=== PATIENT | female | born 1970 | race Caucasian/White ===

== ENCOUNTER 2018-06-17 10:56 | Day surgery (SDC) | payer OTHER, SELFPAY ==
[2018-06-17] VITALS (17 sets, daily range): BP systolic 74–116; BP diastolic 40–61; PULSE 58–103; RESP 15–18; TEMP 36.2–37.2; O2SAT 91–99; BMI 29.2; BMI 29.3
--- NOTE | 2018-06-17 00:21 | HP.PCM_ITS ---
- Problem List (1) Dysmenorrhea Status: Acute History and Physical Date of Admission: 06/17/18 Vital Signs 06/01/18 Height 5 ft 6.75 in 06/01/18 Weight: 189 lb 06/01/18 Body Mass Index (BMI) 29.8 06/01/18 Blood Pressure 118/78 Intake Visit Reasons: DISCUSS NEEDING HYSTERECTOMY Care Mgr Required: No Is patient in pain?: No Allergies No Known Allergies Allergy (Unverified 06/01/18 11:50) Medications cyclobenzaprine 5 mg tablet 5 mg PO TID PRN 06/01/18 [History Confirmed 06/01/18] naproxen 500 mg tablet 500 mg PO BID 06/01/18 [History Confirmed 06/01/18] zolpidem 5 mg tablet 5 mg PO QHS PRN 06/01/18 [History Confirmed 06/01/18] Is last menstrual period known: No Post menopausal: No Patient : No : No Nurse's Note: Pt had endometrial ablation done 3 years ago. [facility] Surgical History History of endometrial ablation (Acute) Family History Brother Heart disease Grandfather Heart disease Father Heart disease Social History number of children: 3 current occupational status: employed current occupation: [employer] Smoking Status: Never smoker alcohol intake: current alcohol intake frequency: holidays/special occasions only substance use type: does not use what type of physical activity do you participate in: weight training seatbelt use: always do you feel safe at home: Yes HPI DISCUSS NEEDING HYSTERECTOMY: Details: SHANE CHURCH is a 48 year old who presents for chronic lower pelvic pain. she had ultrasounds done and the uterus is normal size, she has had an endometrial ablation i the past and she only has 1-2 days of spotting a month but started with cyclic pain and now it is central, lower, cramping and intermittent pain that interferes with quality of life. she has been seen at and has had ultrasounds and Pregancy History 3 Elective abortions Hx Para 3 Spontaneous abortions Hx # Term Pregnancies Ectopic pregnancies Hx # Pregnancies Multiple births # of living children 3 Past Pregnancies Del. Date Name GA/Weeks Outcome Route Bth Weight Infant Gen Labor Lgth Anesthesia Del Locatn Provider FOB Unknown Marta 1992 Unknown Audrey 1994 Unknown Mary 1998 ROS Const Constitutional: Denies fatigue, fever(s), headache(s), increased appetite, poor appetite, weight gain or weight loss ENT ENT: Denies dry mouth GI GI: Reports as per HPI and abdominal pain; denies constipation, nausea or vomiting : Reports as per HPI and pelvic pain; denies difficulty urinating, painful urination, blood in urine, nipple discharge, urinary frequency, urinary incontinence, urinary hesitancy, urinary urgency, vaginal discharge, vaginal dryness, vaginal odor, vaginal itching or other Skin Skin/Breast: Denies hair loss, change in hair, dry skin, breast lump, breast pain, breast skin changes or nipple discharge Exam Const General: cooperative, healthy appearing, comfortable, no acute distress, well developed Nutritional Appearance: average body habitus Orientation: alert HENMT Head: normal to inspection, normocephalic Ears: hearing grossly normal bilaterally, external ears normal Nose: external nose normal, nares normal Face and sinus: normal facial exam Neck Neck: normal visual inspection, no lymphadenopathy, trachea midline Thyroid: thyroid normal Resp Effort & Inspection: normal respiratory effort Musc Other: gross motor intact no deficits, full bilateral strength Skin General: no rashes or lesions noted Neuro Motor: muscle tone normal throughout Assessment & Plan Problems 1. Dysmenorrhea N94.6 plan TVH BS Plan discussed options for management- will obtain records fro previous office for workup information. plan tvh bs. discussed surgical risks including risks of anesthesia, infection, bleeding, injury to bowel, bladder or blood vessels, and patient wishes to proceed with surgery. Coding Level of Care Code Off vis,new,level 4 Diagnoses Dysmenorrhea N94.6 UPDATE- I have seen the patient and performed any clinically relevant updates to the history and physical exam. Rhianna Lundy MD
[2018-06-17 11:32] LABS: Absolute Neutrophil Count 3.5 X10^3/uL (2.0-7.7); Basophil# 0.02 X10^3/uL; Basophil% 0.4 % (0-1); Eosinophil# 0.17 X10^3/uL; Eosinophils% 3.2 % (0-5); Hematocrit 40.4 % (37-47); Hemoglobin 13.5 g/dl (12.0-15.0); Lymphocyte % 22.4 % (19-41); Mean Corp Hgb Conc 33.4 g/gl (32-36); Mean Corpuscular Hgb 30.4 pg (27.0-32.0); Mean Platelet Vol. 9.8 fl (6.2-12.0); Monocyte# 0.47 X10^3/uL; Monocyte% 8.8 % (0-10); Neutrophil % 65.2 % (47-70); POSITIVE COUNT NO; POSITIVE DIFFERENTIAL NO; POSITIVE MORPHOLOGY NO; Platelet Count 195 K/mm3 (150-450); RBC Distribution Width CV 12.6 % (11.6-14.6); RBC Distribution Width SD 41.6 fl (35.1-43.9); Red Blood Count 4.44 M/mm3 (4.2-5.4); White Blood Count 5.4 K/mm3 (4.4-11.0)
[2018-06-17] MEDS: Scopolamine 1mg/72hr Patch 1 PATCH TRANSDERM. (11:43)
[2018-06-17] MEDS: Acetaminophen 500 MG Tablet 1000 MG PO ×2 (11:43→17:48)
[2018-06-17] MEDS: Gabapentin 600 MG Tablet PO (11:43)
[2018-06-17] MEDS: Celecoxib 200 MG Capsule 400 MG PO (11:43)
[2018-06-17] MEDS: Phenazopyridine 95 MG Tablet 190 MG PO (11:43)
[2018-06-17] MEDS: Enoxaparin 40 MG/0.4 ML Syringe SC (11:44)
[2018-06-17] MEDS: Lactated Ringers 1,000 ML 40 ML IV (11:45)
[2018-06-17] MEDS: Magnesium Sulfate 4gm/100mL 4 GM/100 ML IV.SOLN. IV (11:46)
[2018-06-17 11:48] LABS: Internal QC Validated? YES +Cl - CLEAR BKGD; Pregnancy, Urine Negative Negative
[2018-06-17 12:01] LABS: Bedside Glucose 98 mg/dL (70-110)
--- NOTE | 2018-06-17 13:00 | HYST_PTH ---
PATIENT: SHAEN CHURCH LOC: [facility] [place] U#:[id number] AGE/SX: 48/F ROOM: RE06/17/[address]: Dr. Rhianna Lundy MD : 1970 BED: DIS: 06/18/2018 SPEC #: [id number] RECD: 06/17/18 15:16 STATUS: DANGELO SKYJuan Carlos #: [id number] SYLVESTER: 06/17/18 13:[address]: Rhianna Lundy DEPT: SURGICAL PATHOLOGY RECD BY: Love Valadez ENTERED: 06/18/18 09:39 SP TYPE: HYSTERECT OTHR DR: Dr. Rudy Chang MD Tissues: Uterus, NOS Procedures: Surgery Specimen Level V HEADER OPERATION: ERAS, Total vaginal hysterectomy PRE-OP DIAGNOSIS: Dysmenorrhea TISSUE SUBMITTED: Uterus MICROSCOPIC DIAGNOSIS Uterus, vaginal hysterectomy: Cervix - focal mild chronic inflammation. Endometrium - inactive endometrium. See comment. Myometrium - adenomyosis. SJ:augustine 06/21/18 COMMENT The endometrium is predominantly denuded and shows very thin strip of endometrium with inactive endometrium. The endometrial tissue in the area of adenomyosis shows proliferative endometrium. MICROSCOPIC DESCRIPTION Slides are reviewed. GROSS DESCRIPTION Received in fixative is one container labeled with the patient's name and designated uterus. The specimen consists of a uterus with attached cervix measuring 9.5 x 5 x 4.2 cm and weighing 105 gm. The ectocervix is oval in contour and no mass lesions are seen. The endocervical canal measures 3.7 cm in length and is grossly unremarkable. The endometrial cavity is scarred and elongated measuring 3 x 0.8 cm in greatest dimension. The endometrium measures <0.1 cm in thickness. The myometrium measures 2 cm in greatest thickness and is free of mass lesions. Quarry Equipment Operator sections are submitted as follows: 1 - anterior cervix, 2 - posterior cervix, 3 & 4 - anterior uterine wall, 5 & 6 - posterior uterine wall. / AM:augustine 06/18/18 TC:5 CPT: 34943
[2018-06-17] MEDS: Vasopressin 20 UNITS/ML Vial (13:16)
--- NOTE | 2018-06-17 14:12 | PCM.OPRPT ---
Problem List (1) Dysmenorrhea Status: Acute Report of Operation Date of Procedure: 06/17/18 Pre-Operative Diagnosis: dysmenorrhea pelvic pain Post-Operative Diagnosis: same Surgery/Procedure Performed:: tvh Description of Surgical Findings:: normal uterus long cervix narrow introitus fiction and nonfiction writer prose: Nicolle Vargas Type of Anesthesia:: General Special Medications: none Specimen's removed: uterus Drains: camacho Estimated Blood Loss (mL): 100 Fluids Replaced: crystalloid Description of Procedure: Patient was taken to the operating room and was placed under general anesthesia was prepped and draped in normal sterile fashion in the dorsal lithotomy position. Preoperative antibiotics and SCDs and Camacho catheter was placed inside the bladder. Weighted speculum was placed in the vagina and the anterior and posterior lip of the cervix was grasped with 2 Jesika clamps and circumferentially injected with dilute vasopressin. A circumferential incision was made with a scalpel and the posterior cul-de-sac was entered into sharply and a longneck speculum was placed. The anterior cul-de-sac was also dissected down and entered into sharply and the uterosacral ligaments were clamped cut and suture ligated bilaterally followed by the cardinal ligaments which were Clamped cut and suture ligated bilaterally with 0 Monocryl. The uterus serially descended and progressive bites were taken bilaterally up to the level of the utero-ovarian ligament bilaterally which was clamped transected and double ligated with 0 Monocryl suture and 0 Vicryl free tie. Bilateral fallopian tubes and ovaries were well visualized and noted be within normal limits. 2 additional right pelvic sidewall stitches were placed to obtain excellent hemostasis. Excellent hemostasis was noted. The vagina was closed with [id number] 0 Vicryl pop offs including the posterior and anterior peritoneum in the reapproximation. Excellent hemostasis was noted. All instruments removed from the vagina clear urine was noted at the end of the procedure and patient was awoken and taken recovery in stable condition. Grafts/Implants Used: none - Complications none - Admit VTE Documentation VTE Present on Admission: No VTE Mechan Device Prophylaxis: SCD's VTE Pharm Prophylaxis ordered?: Yes
--- NOTE | 2018-06-17 14:15 | OP.PCM_ITS ---
Problem List (1) Dysmenorrhea Status: Acute Report of Operation Date of Procedure: 06/17/18 Pre-Operative Diagnosis: dysmenorrhea pelvic pain Post-Operative Diagnosis: same Surgery/Procedure Performed:: tvh Description of Surgical Findings:: normal uterus long cervix narrow introitus assistant professor of geography: Nicolle Vargas Type of Anesthesia:: General Special Medications: none Specimen's removed: uterus Drains: camacho Estimated Blood Loss (mL): 100 Fluids Replaced: crystalloid Description of Procedure: Patient was taken to the operating room and was placed under general anesthesia was prepped and draped in normal sterile fashion in the dorsal lithotomy position. Preoperative antibiotics and SCDs and Camacho catheter was placed inside the bladder. Weighted speculum was placed in the vagina and the anterior and posterior lip of the cervix was grasped with 2 Jesika clamps and circumferentially injected with dilute vasopressin. A circumferential incision was made with a scalpel and the posterior cul-de-sac was entered into sharply and a longneck speculum was placed. The anterior cul-de-sac was also dissected down and entered into sharply and the uterosacral ligaments were clamped cut and suture ligated bilaterally followed by the cardinal ligaments which were Clamped cut and suture ligated bilaterally with 0 Monocryl. The uterus serially descended and progressive bites were taken bilaterally up to the level of the utero-ovarian ligament bilaterally which was clamped transected and double ligated with 0 Monocryl suture and 0 Vicryl free tie. Bilateral fallopian tubes and ovaries were well visualized and noted be within normal limits. 2 additional right pelvic sidewall stitches were placed to obtain excellent hemostasis. Excellent hemostasis was noted. The vagina was closed with [id number] 0 Vicryl pop offs including the posterior and anterior peritoneum in the reapproximation. Excellent hemostasis was noted. All instruments removed from the vagina clear urine was noted at the end of the procedure and patient was awoken and taken recovery in stable condition. Grafts/Implants Used: none - Complications none - Admit VTE Documentation VTE Present on Admission: No VTE Mechan Device Prophylaxis: SCD's VTE Pharm Prophylaxis ordered?: Yes
--- NOTE | 2018-06-17 14:17 | DCINST_ITS ---
Discharge Diet: No Restrictions Discharge Activity: Return to Normal Activity, May Not Drive, May Shower May resume sexual activity in: 6-8 weeks Call your doctor if your incision/area has: Continuous Slow Oozing, Sudden Increased Bleeding, Increased Pain/ Swelling, Increased Redness, Foul Smelling Discharge Call your doctor if you observe: Fever of 101 or Higher, Inability to urinate, Inability to have a bowel movement, Using more than one pad per hour Allergies/Adverse Reactions: Allergies No Known Allergies Allergy (Verified 06/17/18 11:31) Medications to take at Discharge Cyclobenzaprine [Flexeril] 10 mg PO QHS 06/10/18 Naproxen [Naprosyn] 500 mg PO DAILY 06/10/18 Zolpidem Tartrate [Ambien] 10 mg PO QHS 06/10/18 Ibuprofen [Motrin] 600 mg PO Q6H PRN PRN #30 tablet 06/17/18 Oxycodone HCl/Acetaminophen [Percocet 5-325] 1 - 2 tablet PO Q4H PRN PRN 7 Days #15 tablet 06/17/18 The following prescriptions were given: Oxycodone HCl/Acetaminophen [Percocet 5-325] 1 - 2 tablet PO Q4H PRN PRN 7 Days #15 tablet PRN Reason: Pain Ibuprofen [Motrin] 600 mg PO Q6H PRN PRN #30 tablet PRN Reason: Pain Primary Care Physician: Rudy Chang MD [Primary Care Provider] - Test Results: Test results from this visit will be discussed in further detail at your follow- up appointment, if applicable. Please Follow Up With: Rhianna Lundy MD - [phone]
[2018-06-17] MEDS: Lactated Ringers 500 ML 999 ML IV (16:05)
[2018-06-17] MEDS: Ketorolac 30 MG/ML Syringe IV (17:48)
[2018-06-17] MEDS: Docusate Sodium 100 MG Capsule PO (21:08)
[2018-06-18] MEDS: Ketorolac 30 MG/ML Syringe IV ×2 (00:12→06:03)
[2018-06-18] MEDS: 0.9% NaCl Peripheral Flush Adult/Peds IV ×2 (00:12→06:03)
[2018-06-18] MEDS: Lactated Ringers 1,000 ML 70 ML IV (00:16)
[2018-06-18] MEDS: Acetaminophen 500 MG Tablet 1000 MG PO ×2 (00:18→06:03)
[2018-06-18 04:37] VITALS: BP 105/61; PULSE 97; RESP 16; TEMP 36.6; O2SAT 95
[2018-06-18 06:45] LABS: Hematocrit 34.9 % (37-47); Hemoglobin 12.1 g/dl (12.0-15.0); Mean Corp Hgb Conc 34.7 g/gl (32-36); Mean Corpuscular Hgb 31.8 pg (27.0-32.0); Mean Corpuscular Volume 91.6 fL (81-99); Mean Platelet Vol. 10.1 fl (6.2-12.0); Platelet Count 219 K/mm3 (150-450); RBC Distribution Width CV 12.2 % (11.6-14.6); RBC Distribution Width SD 39.4 fl (35.1-43.9); Red Blood Count 3.81 M/mm3 (4.2-5.4); White Blood Count 12.8 K/mm3 (4.4-11.0)
[2018-06-18 06:46] LABS: Scan Indicated on CBC? Y/N NO
[2018-06-18 07:32] VITALS: O2SAT 94
[2018-06-18] MEDS: Docusate Sodium 100 MG Capsule PO (08:01)
[2018-06-18] MEDS: Enoxaparin 40 MG/0.4 ML Syringe SC (08:01)
[2018-06-18 08:04] VITALS: BP 95/55; PULSE 64; RESP 16; TEMP 36.6; O2SAT 99
--- NOTE | 2018-06-18 08:20 | PN.OBGYN_ITS ---
Subjective: Doing well. Pain controlled. camacho out, waiting to void - Physical Exam General: Alert, Oriented x3 Abdomen: Soft, Non Tender, Non-Distended Vital Signs Temp Pulse Resp BP Pulse Ox 97.9 F 64 16 95/55 L 99 06/18/18 08:04 06/18/18 08:04 06/18/18 08:04 06/18/18 08:04 06/18/18 08:04 Oxygen Flow Rate (L/min) 2 Oxygen Delivery Method Room Air Weight: 187 lb 2.759 oz Body Mass Index (BMI) 29.3 Intake and Output for Last 24 Hours 06/16/18 06/17/18 06/18/18 23:59 23:59 23:59 Intake Total 1956 / 1956 1470 / 1470 Output Total 710 / 710 2300 / 2300 Balance 1246 / 1246 -830 / -830 Laboratory Tests Past 24 Hrs 06/17/18 06/17/18 06/17/18 11:26 11:26 12:45 WBC 5.4 RBC 4.44 Hgb 13.5 Hct 40.4 MCV 91.0 MCH 30.4 MCHC 33.4 RDW 12.6 RDW Differential 41.6 Plt Count 195 MPV 9.8 Immature Gran % (Auto) 0.000 Neut % (Auto) 65.2 Lymph % (Auto) 22.4 [place] % (Auto) 8.8 Eos % (Auto) 3.2 Baso % (Auto) 0.4 Absolute Neuts (auto) 3.5 Absolute Lymphs (auto) 1.20 Total Counted Not Reportable Urine Test Negative Blood Type A POSITIVE Antibody Screen NEGATIVE 06/18/18 06:20 WBC 12.8 H RBC 3.81 L Hgb 12.1 Hct 34.9 L MCV 91.6 MCH 31.8 MCHC 34.7 RDW 12.2 RDW Differential 39.4 Plt Count 219 MPV 10.1 Immature Gran % (Auto) Neut % (Auto) Lymph % (Auto) [place] % (Auto) Eos % (Auto) Baso % (Auto) Absolute Neuts (auto) Absolute Lymphs (auto) Total Counted Urine Test Blood Type Antibody Screen POC Glucose 06/17/18 11:33 POC Glucose 98 Medical Necessity - Tobacco Use Smoking Status: Never smoker Tobacco Use: Non-smoker Assessment/Plan All Active Problems Dysmenorrhea (Acute) TVH POD#1: Routine care. Plans home this AM
[2018-06-18 11:22] VITALS: BP 122/73; PULSE 83; RESP 18; TEMP 36.7; O2SAT 99
== END 2018-06-18 11:27 | disposition home or self-care (01) ==
LOC: SDC 11:01 → AC 11:01 → MS3 13:32
PROVIDERS: Anesthesiology; Family Provider Family Medicine; PCP Family Medicine; Referring Provider Obstetrics & Gynecology; Visit Provider Obstetrics & Gynecology
PROC: (CPT 58260; principal; 2018-06-17 12:40)
DX: N80.0 Endometriosis of uterus (principal); N94.6 Dysmenorrhea, unspecified; F41.9 Anxiety disorder, unspecified; M19.90 Unspecified osteoarthritis, unspecified site; Z79.899 Other long term (current) drug therapy
CPT/HCPCS: 58260; 36415; 81025; 82962; 85025; 85027; 86850; 86900; 88307; J7120; A4216; J2405

== ENCOUNTER → 2018-12-02 | Outpatient (CLI) | payer OTHER, SELFPAY ==
[2018-12-02 08:45] VITALS: BMI 29.8
[2018-12-02 11:07] LABS: HIV - WCH Non-Reactive (Nonreactive)
[2018-12-03 04:46] LABS: Rapid Plasmin Reagin (RPR) NONREACTIVE (NONREACTIVE)
[2018-12-03 20:07] LABS: HCV Quant. RNA PCR HCV Not Detected IU/mL (.)
== END | disposition home or self-care (01) ==
LOC: PAVLAB 09:15
PROVIDERS: Family Provider Family Medicine; PCP Family Medicine; Referring Provider Nurse Practitioner Women's Health; Visit Provider Nurse Practitioner Women's Health
DX: Z11.3 Encounter for screening for infections with a predominantly sexual mode of transmission (principal)
CPT/HCPCS: 36415; 86592; 86703; 87522

== ENCOUNTER → 2018-12-02 | Outpatient (CLI) | payer OTHER, SELFPAY ==
[2018-12-02 08:45] VITALS: BMI 29.8
[2018-12-02 20:06] LABS: Chlamydia Trachomatis by PCR Negative (Negative); Neisserai gonorrhoeae by PCR Negative (Negative); Probe Check PASS; Sample Adequacy Control PASS; Specimen Processing Control PASS
== END | disposition home or self-care (01) ==
LOC: LABSPEC 17:12
PROVIDERS: Family Provider Family Medicine; PCP Family Medicine; Referring Provider Nurse Practitioner Women's Health; Visit Provider Nurse Practitioner Women's Health
DX: Z11.3 Encounter for screening for infections with a predominantly sexual mode of transmission (principal)
CPT/HCPCS: 87491; 87591

== ENCOUNTER 2019-02-07 19:24 | Emergency (ER) | payer OTHER, SELFPAY ==
[2018-12-02 08:45] VITALS: BMI 29.8
[2019-02-07 19:25] VITALS: BP 114/65; BP 117/65; PULSE 73; PULSE 74; RESP 18; TEMP 36.7; O2SAT 98; BMI 29.9
[2019-02-07 19:41] VITALS: TEMP 36.4
--- NOTE | 2019-02-07 19:49 | CT_ITS ---
STUDY: CT BRAIN WITHOUT CONTRAST REASON FOR EXAM: Female, 48 years old. Trauma RADIATION DOSAGE (If Supplied By Facility): CTDIvol = ( 44.99 ) mGy, DLP = ( 779.24 ) mGycm TECHNIQUE: Transaxial CT imaging of the brain was performed without administration of intravenous contrast material. Individualized dose optimization techniques were used for this CT. COMPARISON: None. FINDINGS: There is no acute bleed or infarct. There are normal white matter tracts. The ventricles are normal in configuration. There is no hydrocephalus. The visualized paranasal sinuses are clear. The mastoid air cells are well aerated. There is no skull fracture. CT/Brain/Head without Contrast IMPRESSION: No acute intracranial abnormality. Electronically Signed: Chaz Romero, at 20:17 EDT Tel , Service support ,
--- NOTE | 2019-02-07 19:49 | CT_ITS ---
STUDY: CT CERVICAL SPINE WITHOUT CONTRAST REASON FOR EXAM: Female, 48 years old. Trauma RADIATION DOSAGE (If Supplied By Facility): CTDIvol = ( 24.94 ) mGy, DLP = ( 471.73 ) mGycm TECHNIQUE: High resolution transaxial imaging was performed without contrast material. Sagittal and coronal images were reconstructed. Individualized dose optimization techniques were used for this CT. COMPARISON: None available. FINDINGS: There is no evidence of fracture or dislocation in the cervical spine. The dens is intact. There is straightening of the normal cervical lordosis which may be due to paraspinal muscle spasm or may be positional in nature. The vertebral body heights and disc spaces are well-maintained. The visualized paraspinal soft tissues are within normal limits. CT/Spine Cervical without Contras IMPRESSION: No fracture or dislocation in the cervical spine. Straightening of the normal cervical lordosis which may be due to paraspinal muscle spasm or may be positional in nature. Electronically Signed: Chaz Romero, at 20:20 EDT Tel , Service support ,
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
--- NOTE | 2019-02-07 20:00 | RAD_ITS ---
STUDY: X-RAY - LEFT WRIST REASON FOR EXAM: Female, 48 years old. Trauma TECHNIQUE: 3 view(s) of the wrist were obtained. COMPARISON: None. FINDINGS: There is no evidence of fracture or dislocation. There are no significant degenerative changes. There are no radiodense foreign bodies. RAD/Wrist min 3 Views IMPRESSION: No fracture or dislocation. Electronically Signed: Chaz Romero, at 20:27 EDT Tel , Service support ,
--- NOTE | 2019-02-07 20:00 | RAD_ITS ---
STUDY: X-RAY - LUMBAR SPINE REASON FOR EXAM: Female, 48 years old. Trauma TECHNIQUE: 3 view(s) of the lumbar spine were obtained. COMPARISON: None FINDINGS: There is no evidence of fracture or dislocation in the lumbar spine. The vertebral body heights are well-maintained. There are degenerative changes at L5/S1 with disc space narrowing. RAD/Lumbar Spine 2 or 3 Views IMPRESSION: No fracture or dislocation in the lumbar spine. Degenerative changes L5/S1 with disc space narrowing. Electronically Signed: Chaz Romero, at 20:28 EDT Tel , Service support ,
[2019-02-07] MEDS: Naproxen 500 MG Tablet PO (21:15)
[2019-02-07 21:17] VITALS: PULSE 79; RESP 18; O2SAT 100
--- NOTE | 2019-02-07 21:18 | ED.RN ---
THIS NURSE REVIEWED D/C INSTRUCTIONS WITH PT. PT VERBALIZED UNDERSTANDING OF INSTRUCTIONS. PT DENIES FURTHER NEEDS OR QUESTIONS AT THIS TIME. PT AMBULATES FROM ROOM ON OWN WITHOUT ASSISTANCE FROM STAFF
== END 2019-02-07 21:19 | disposition home or self-care (01) ==
PROVIDERS: Emergency Provider Emergency Medicine; Family Provider Family Medicine; PCP Family Medicine
DX: S16.1XXA Strain of muscle, fascia and tendon at neck level, initial encounter (principal); M25.532 Pain in left wrist; M54.5 Low back pain; V89.2XXA Person injured in unspecified motor-vehicle accident, traffic, initial encounter; Y93.9 Activity, unspecified; Y92.9 Unspecified place or not applicable
CPT/HCPCS: 70450; 72100; 72125; 73110; 99283

== ENCOUNTER 2019-02-28 11:00 | Outpatient (RCR) | payer OTHER, SELFPAY ==
[2018-12-02 08:45] VITALS: BMI 29.8
--- NOTE | 2019-02-09 07:16 | HP.PTEVAL_ITS ---
Patient's Visit Information SHANE CHURCH is a 48 year old F referred to Physical Therapy by OLGA LIDIA Spaulding with a diagnosis of Cervicalgia, B shoulder pain. Date of Evaluation: 02/02/19 Physical Therapist: Christo Senior DPT - Visit Plan Frequency: 2-3x /Week Duration: 4-6 Weeks Plan: Start with thoracic extension mobs, postural exercises, SNAGs into extension (cervical spine), deep neck flexor strengthening. - Subjective Findings: Pt. is here today for her initial evaluation with diagnosis of cervicalgia, and B shoulder pain. Pt. reports having pain for ~2 years. pt. reports having 5/10 in both cervial spine and shoulders. Pt. reports having N/T in both arms that extends into B hands. Pt. reports dropping objects as well due to B UE waekness. pt. reprots having some mild relief with chiro and massaged. Pt. is taking naproxen which she reports is not helping. Pt. believes it is her job set up that is really bothering her. She reports looking up bother her at times. Pt. is hopeful to reduce symptoms in order toget back to all recreational and work activiteis without limitations. - Pain spine cervical Pain Intensity (Out of 10): 2 Pain Intensity Range: 3, 6 Comment: CT junction R shoulder Pain Intensity (Out of 10): 2 Pain Intensity Range: 3, 6 L shoulder Pain Intensity (Out of 10): 2 Pain Intensity Range: 2, 6 - Objective POSTURE: Pt. has generally flexed posture of cervical spine. Pt. is able to correct, but has difficulty maintaining. PALPATION: Pt. has tenderness along T/S greatest at C7-T3. Hypombolity noted Pt. has some mild B UT sorenes. No pain with cervical spring testing. NEURO: Pt. has normal sensation in B UE and normal DTR biceps and triceps bilateral. ROM: Pt. has normal B shoulder ROM. Pt. CERVICAL SPINE. flexion- min loss increase NW< extension min.mod loss incerase NW, rotatuon min /nil loss NE bilat, SB nil loss NE. MMT: 5/5 throughout B shoulders and 5/5 cervical isometrics. - Goals Goal 1:: Pt. to be I with HEP. Goal Time Frame: 4-6 Weeks Goal 2:: Pt. to have increased posture throughout therapy session indicating increased postural awareness. Goal Time Frame: 4-6 Weeks Goal 3:: Pt. to have full cervical ROM withotu icnrease in symptoms. Goal Time Frame: 4-6 Weeks Goal 4:: Pt. to complete all job activities without increase in symptoms. Goal Time Frame: 4-6 Weeks Goal 5:: Pt. have reduce C/T junction flexion. Goal Time Frame: 4-6 Weeks - Rehabilitation Potential Physical Therapy Diagnosis: Pt. has signs and symptoms consistent with cervicalgia and B shoulder pain. Pt. prenent to have a large postural component to her symptoms and stiffness through her thoracic spine and cervical spine. Pt. would benefit from PT to work on ROM and postural control. Rehabilitation Potential: Excellent - Anticipated Interventions Patient/Client Instruction: Educate patient on: Condition, Plan of Care, Risk Factors, Benefits of Fitness Program For the Purpose of:: To improve decision making, To facilitate caregiver know ledge, To improve self management, To prevent re-injury, To improve ability to perform tasks related to life management, To improve tolerance to ADL's Therapeutic Exercise to Include: Strength training, Power training, Body mechanics, Postural training, Flexibilty training, Passive ROM, Active ROM, Dynamic Lumbar Stabilization, Ludy Exercises, Scapular Strength/Stabili zation For the Purpose of:: To decrease pain, To increase ROM, To improve nutrient delivery to tissue, To increase oxygenation perfusion, To improve ability of physical actions for home/community/work/leisure, To improve gait and locomotor functions, To improve health of tissue, To decrease soft tissue restriction Manual Therapy Techniques to Include: Mobilization, Manipulation, Passive ROM, Soft tissue mobilization For the Purpose of:: To decrease pain, To decrease swelling/inflammation, To increase ROM, To improve nutrient delivery to tissue, To increase oxygenation perfusion Thank you for the opportunity to evaluate your patient. For Medicare and Medicare HMO plans, please review the plan of care and approve it. It will need to be FAXED BACK to us at [phone] for Medicare purposes. For Medicare only, by signing this I certify the plan of care. Please let me know if there are questions or concerns regarding this plan of care. Physician Signature: Date:
--- NOTE | 2019-08-26 08:42 | HP.PT.NRP ---
SHANE CHURCH was seen in my office for initial evaluation on 02/02/19. The following Plan of Care was established for this patient: Initial Frequency: 2-3x /Week Initial Duration: 4-6 Weeks Patient/Client Instruction: Educate patient on: Condition, Plan of Care, Risk Factors, Benefits of Fitness Program For the Purpose of:: To improve decision making, To facilitate caregiver knowledge, To improve self management, To prevent re-injury, To improve ability to perform tasks related to life management, To improve tolerance to ADL's Therapeutic Exercise to Include: Strength training, Power training, Body mechanics, Postural training, Flexibilty training, Passive ROM, Active ROM, Dynamic Lumbar Stabilization, Ludy Exercises, Scapular Strength/Stabilization For the Purpose of:: To decrease pain, To increase ROM, To improve nutrient delivery to tissue, To increase oxygenation perfusion, To improve ability of physical actions for home/community/work/leisure, To improve gait and locomotor functions, To improve health of tissue, To decrease soft tissue restriction Manual Therapy Techniques to Include: Mobilization, Manipulation, Passive ROM, Soft tissue mobilization For the Purpose of:: To decrease pain, To decrease swelling/inflammation, To increase ROM, To improve nutrient delivery to tissue, To increase oxygenation perfusion This patient was last seen in our office 02/28/19. Pertinent comments regarding their Physical therapy will appear below: PT. was seen for her cervical pain and B shoulder pain. Pt. was treated with postural strenthening, manual therapy and DN. Pt was doing much better by then end of PT. Pt. has not martínez seen in several months and will be DC from PT at this point in time. At this point I will be discontinuing this patient from physical therapy. I would be happy to see this patient again in the future if found appropriate by the physician. Thank you! Christo Senior, REGT
== END 2019-02-28 19:00 | disposition home or self-care (01) ==
LOC: PT 11:00
PROVIDERS: Family Provider Family Medicine; PCP Family Medicine; Referring Provider Nurse Practitioner Family; Visit Provider Nurse Practitioner Family
DX: M54.2 Cervicalgia (principal); M25.511 Pain in right shoulder
CPT/HCPCS: 97014; 97110; 97140; 97161; G0283

== ENCOUNTER → 2019-03-07 14:16 | Outpatient (CLI) | payer OTHER, SELFPAY ==
[2019-02-07 19:25] VITALS: BMI 29.9
--- NOTE | 2019-03-07 14:19 | RAD_ITS ---
STUDY: X-RAY - PELVIS REASON FOR EXAM: Female, 48 years old. Inflammatory polyarthropathy. TECHNIQUE: One view of the pelvis was obtained. COMPARISON: None. FINDINGS: There is a non-specific bowel gas pattern. Normal visualized soft tissue structures. There is narrowing with cortical sclerosis and osteophyte formation of the sacroiliac joint consistent with degenerative osteoarthritic changes. Normal visualized bilateral superior and inferior pubic rami. There are degenerative changes of the pubic symphysis with articular narrowing and sclerosis. Normal ischial tuberosities. Normal visualized right femoral head. There is mild osteoarthritic spur formation of the right acetabular rim. Normal right hip joint. Normal visualized left femoral head. There is mild osteoarthritic spur formation of the left acetabular rim. Normal left hip joint. RAD/Pelvis 1 or 2 Views IMPRESSION: Mild/early degenerative arthritis as described above, otherwise normal x-ray examination of the pelvis. Electronically Signed: Jessy Caldera MD at 1:59 EST , Service support ,
[2019-03-07 16:14] LABS: Absolute Lymphocyte Count 1.13 X10^3/uL (0.83-4.51); Absolute Neutrophil Count 3.4 X10^3/uL (2.0-7.7); Basophil# 0.04 X10^3/uL; Basophil% 0.8 % (0-1); Eosinophil# 0.11 X10^3/uL; Eosinophils% 2.2 % (0-5); Hematocrit 40.5 % (37-47); Hemoglobin 13.7 g/dL (12.0-15.0); Lymphocyte # 1.13 X10^3/ul (4.0); Lymphocyte % 22.5 % (19-41); Mean Corp Hgb Conc 33.8 g/dL (32-36); Mean Corpuscular Hgb 31.1 pg (27.0-32.0); Mean Platelet Vol. 10.2 fl (6.2-12.0); Monocyte# 0.31 X10^3/uL; Monocyte% 6.2 % (0-10); NRBC Flagged by Analyzer 0 % (0-5); Neutrophil # 3.42 X10^3/uL (2.7-7.7); Neutrophil % 68.1 % (47-70); Platelet Count 241 K/mm3 (150-450); RBC Distribution Width CV 11.1 % (11.6-14.6)
[2019-03-07 16:25] LABS: AST(SGOT) 10 U/L (15-37); Alanine Aminotransfer ALT/SGPT 15 U/L (13-56); Albumin, Serum 3.8 g/dL (3.2-5.0); Alkaline Phosphatase 54 U/L (45-117); Anion Gap 6 (5-15); BUN 21 mg/dL (7-18); BUN/Creat Ratio 27.4 RATIO (10-20); Calcium,Total 8.6 mg/dL (8.5-10.1); Chloride 105 mmol/L (98-107); Creatinine, Serum 0.77 mg/dL (0.55-1.02); EST Glomerular Filtration Rate 86 mL/min (>60); Est Glom Filt Rate - Afr Amer 104 mL/min (>60); Globulin 3.7 g/dL (2.2-4.2); Glucose 87 mg/dL (74-106); Potassium 3.5 mmol/L (3.5-5.1); Protein, Total 7.5 g/dL (6.4-8.2); Rheumatoid Factor < 10.0 IU/mL (<15); Sodium Level 139 mmol/L (136-145)
[2019-03-08 10:25] LABS: Hepatitis B Surface Antibody Non-Reactive; Hepatitis B Surface Antigen Non-Reactive (Nonreactive); Hepatitis C Antibody Non-Reactive (Nonreactive)
[2019-03-09 10:50] LABS: SJOGREN'S Anti-SS-A test < 0.2 AI (0.0-0.9); SJOGREN'S Anti-SS-B test < 0.2 AI (0.0-0.9)
[2019-03-09 11:41] LABS: ANTINUCLEAR ANTIBODIES DIRECT Negative (Negative)
[2019-03-14 16:36] LABS: CCP IgG Antibodies 8 units (0-19); HLA B27 Negative (.); Hepatitis B Core AB IgM Negative (Negative)
== END ==
PROVIDERS: Family Provider Family Medicine; PCP Family Medicine; Referring Provider Internal Medicine Rheumatology; Visit Provider Internal Medicine Rheumatology
DX: M06.4 Inflammatory polyarthropathy (principal); R51 Headache; G47.00 Insomnia, unspecified
CPT/HCPCS: 36415; 72170; 80053; 81374; 85025; 86038; 86200; 86235; 86431; 86705; 86706; 86803; 87340

== ENCOUNTER → 2019-05-21 11:27 | Outpatient (CLI) | payer OTHER, SELFPAY ==
[2019-05-21 11:52] LABS: Absolute Lymphocyte Count 2.25 X10^3/uL (0.83-4.51); Absolute Neutrophil Count 4.2 X10^3/uL (2.0-7.7); Basophil# 0.03 X10^3/uL; Basophil% 0.4 % (0-1); Eosinophils% 1.4 % (0-5); Hematocrit 41.6 % (37-47); Hemoglobin 14.2 g/dL (12.0-15.0); Lymphocyte # 2.25 X10^3/ul (4.0); Lymphocyte % 31.5 % (19-41); Mean Corp Hgb Conc 34.1 g/dL (32-36); Mean Corpuscular Hgb 31.9 pg (27.0-32.0); Mean Corpuscular Volume 93.5 fL (81-99); Mean Platelet Vol. 9.3 fl (6.2-12.0); Monocyte# 0.54 X10^3/uL; Monocyte% 7.6 % (0-10); NRBC Flagged by Analyzer 0 % (0-5); Neutrophil % 58.7 % (47-70); Platelet Count 238 K/mm3 (150-450); RBC Distribution Width CV 12.3 % (11.6-14.6); RBC Distribution Width SD 42.2 fl (35.1-43.9); Red Blood Count 4.45 M/mm3 (4.2-5.4); White Blood Count 7.2 K/mm3 (4.4-11.0)
[2019-05-21 12:41] LABS: AST(SGOT) 10 U/L (15-37); Alanine Aminotransfer ALT/SGPT 20 U/L (13-56); Albumin, Serum 3.6 g/dL (3.2-5.0); Alkaline Phosphatase 45 U/L (45-117); Anion Gap 4 (5-15); BUN 17 mg/dL (7-18); BUN/Creat Ratio 17.4 RATIO (10-20); Calcium,Total 8.8 mg/dL (8.5-10.1); Chloride 105 mmol/L (98-107); Creatinine, Serum 0.98 mg/dL (0.55-1.02); EST Glomerular Filtration Rate 65 mL/min (>60); Est Glom Filt Rate - Afr Amer 78 mL/min (>60); Globulin 3.5 g/dL (2.2-4.2); Glucose 79 mg/dL (74-106); Potassium 3.5 mmol/L (3.5-5.1); Protein, Total 7.1 g/dL (6.4-8.2); Sodium Level 141 mmol/L (136-145)
== END ==
PROVIDERS: PCP Family Medicine; Referring Provider Internal Medicine Rheumatology; Visit Provider Internal Medicine Rheumatology
DX: M06.4 Inflammatory polyarthropathy (principal); Z79.899 Other long term (current) drug therapy; R51 Headache; G47.00 Insomnia, unspecified
CPT/HCPCS: 36415; 80053; 85025

== ENCOUNTER → 2019-08-31 16:29 | Outpatient (CLI) | payer OTHER, SELFPAY ==
[2019-08-31 17:44] LABS: Absolute Lymphocyte Count 1.66 X10^3/uL (0.83-4.51); Absolute Neutrophil Count 4.8 X10^3/uL (2.0-7.7); Basophil# 0.02 X10^3/uL; Basophil% 0.3 % (0-1); Eosinophil# 0.09 X10^3/uL; Eosinophils% 1.3 % (0-5); Hematocrit 40.2 % (37-47); Hemoglobin 13.5 g/dL (12.0-15.0); Lymphocyte # 1.66 X10^3/ul (4.0); Mean Corp Hgb Conc 33.6 g/dL (32-36); Mean Corpuscular Hgb 31.8 pg (27.0-32.0); Mean Corpuscular Volume 94.6 fL (81-99); Mean Platelet Vol. 9.9 fl (6.2-12.0); Monocyte# 0.38 X10^3/uL; Monocyte% 5.5 % (0-10); NRBC Flagged by Analyzer 0 % (0-5); Neutrophil # 4.76 X10^3/uL (2.7-7.7); Neutrophil % 68.6 % (47-70); Platelet Count 245 K/mm3 (150-450); RBC Distribution Width CV 11.7 % (11.6-14.6); RBC Distribution Width SD 39.9 fl (35.1-43.9); Red Blood Count 4.25 M/mm3 (4.2-5.4); White Blood Count 6.9 K/mm3 (4.4-11.0)
[2019-08-31 18:12] LABS: AST(SGOT) 13 U/L (15-37); Alanine Aminotransfer ALT/SGPT 22 U/L (13-56); Albumin, Serum 3.7 g/dL (3.2-5.0); Alkaline Phosphatase 51 U/L (45-117); Anion Gap 7 (5-15); BUN 13 mg/dL (7-18); BUN/Creat Ratio 17.1 RATIO (10-20); Calcium,Total 8.8 mg/dL (8.5-10.1); Chloride 103 mmol/L (98-107); Creatinine, Serum 0.76 mg/dL (0.55-1.02); EST Glomerular Filtration Rate 86 mL/min (>60); Est Glom Filt Rate - Afr Amer 104 mL/min (>60); Globulin 3.8 g/dL (2.2-4.2); Glucose 91 mg/dL (74-106); Potassium 3.7 mmol/L (3.5-5.1); Protein, Total 7.5 g/dL (6.4-8.2); Sodium Level 136 mmol/L (136-145)
== END ==
PROVIDERS: PCP Family Medicine; Referring Provider Internal Medicine Rheumatology; Visit Provider Internal Medicine Rheumatology
DX: M06.4 Inflammatory polyarthropathy (principal); Z79.899 Other long term (current) drug therapy; M35.00 Sjogren syndrome, unspecified; R51 Headache; G47.00 Insomnia, unspecified
CPT/HCPCS: 36415; 80053; 85025

== ENCOUNTER → 2019-10-14 15:17 | Outpatient (CLI) | payer OTHER, SELFPAY ==
[2019-10-14 17:38] LABS: Absolute Lymphocyte Count 1.59 X10^3/uL (0.83-4.51); Absolute Neutrophil Count 2.9 X10^3/uL (2.0-7.7); Basophil# 0.03 X10^3/uL; Basophil% 0.6 % (0-1); Eosinophil# 0.09 X10^3/uL; Eosinophils% 1.8 % (0-5); Hemoglobin 12.7 g/dL (12.0-15.0); Lymphocyte # 1.59 X10^3/ul (4.0); Lymphocyte % 31.4 % (19-41); Mean Corp Hgb Conc 34.3 g/dL (32-36); Mean Corpuscular Volume 93.2 fL (81-99); Mean Platelet Vol. 9.9 fl (6.2-12.0); Monocyte# 0.42 X10^3/uL; Monocyte% 8.3 % (0-10); NRBC Flagged by Analyzer 0 % (0-5); Neutrophil # 2.94 X10^3/uL (2.7-7.7); Neutrophil % 57.9 % (47-70); Platelet Count 247 K/mm3 (150-450); RBC Distribution Width CV 11.9 % (11.6-14.6); RBC Distribution Width SD 40.9 fl (35.1-43.9); Red Blood Count 3.97 M/mm3 (4.2-5.4); White Blood Count 5.1 K/mm3 (4.4-11.0)
[2019-10-14 18:11] LABS: AST(SGOT) 15 U/L (15-37); Alanine Aminotransfer ALT/SGPT 23 U/L (13-56); Albumin, Serum 3.6 g/dL (3.2-5.0); Alkaline Phosphatase 45 U/L (45-117); Anion Gap 8 (5-15); BUN 16 mg/dL (7-18); BUN/Creat Ratio 20.2 RATIO (10-20); Calcium,Total 8.6 mg/dL (8.5-10.1); Chloride 108 mmol/L (98-107); Creatinine, Serum 0.79 mg/dL (0.55-1.02); EST Glomerular Filtration Rate 82 mL/min (>60); Est Glom Filt Rate - Afr Amer 100 mL/min (>60); Globulin 3.5 g/dL (2.2-4.2); Glucose 98 mg/dL (74-106); Potassium 3.1 mmol/L (3.5-5.1); Protein, Total 7.1 g/dL (6.4-8.2); Sodium Level 141 mmol/L (136-145)
== END ==
PROVIDERS: PCP Family Medicine; Referring Provider Internal Medicine Rheumatology; Visit Provider Internal Medicine Rheumatology
DX: M06.4 Inflammatory polyarthropathy (principal); M35.00 Sjogren syndrome, unspecified; R51 Headache; G47.00 Insomnia, unspecified; Z79.899 Other long term (current) drug therapy
CPT/HCPCS: 36415; 80053; 85025

== ENCOUNTER → 2019-11-10 15:14 | Outpatient (CLI) | payer OTHER, SELFPAY ==
[2019-11-14 03:06] LABS: QNTFERON TB Mitogen Value > 10.00 IU/mL (.); QNTFERON TB Nil Value 0.01 IU/mL (.); QNTFERON TB1+ Ag Value 0.02 IU/mL (.); QNTFERON TB2+ Ag Value 0.02 IU/mL (.)
[2019-11-14 11:20] LABS: QNTIFERON TB Positive Criteria Negative (Negative)
== END ==
PROVIDERS: PCP Family Medicine; Referring Provider Internal Medicine Rheumatology; Visit Provider Internal Medicine Rheumatology
DX: M06.4 Inflammatory polyarthropathy (principal); M35.00 Sjogren syndrome, unspecified; R51 Headache; G47.00 Insomnia, unspecified; Z79.899 Other long term (current) drug therapy
CPT/HCPCS: 36415; 86480

== ENCOUNTER → 2019-11-16 16:26 | Outpatient (CLI) | payer OTHER, SELFPAY ==
--- NOTE | 2019-11-16 16:29 | RAD_ITS ---
STUDY: X-RAY CHEST REASON FOR EXAM: Female, 49 years old. RA -- [facility] current drug therapy TECHNIQUE: Frontal and lateral views of the chest. COMPARISON: None. FINDINGS: The lungs are clear and expanded. There is no demonstrated pleural abnormality. Normal size heart. Normal mediastinum and maryam. Normal visualized pulmonary arteries. Normal visualized aortic arch and descending thoracic aorta. There is mild dextroscoliosis of the thoracic spine. Normal visualized ribs, clavicles, and shoulders. There is no demonstrated abnormality of the visualized soft tissue structures of the upper abdomen. RAD/Chest PA and Lateral IMPRESSION: No definite acute or significant abnormality seen. Electronically Signed: Fredy Hunter MD at 20:43 EDT , Service support ,
== END ==
PROVIDERS: PCP Family Medicine; Referring Provider Internal Medicine Rheumatology; Visit Provider Internal Medicine Rheumatology
DX: M06.09 Rheumatoid arthritis without rheumatoid factor, multiple sites (principal); M35.00 Sjogren syndrome, unspecified; R51 Headache; G47.00 Insomnia, unspecified; Z79.899 Other long term (current) drug therapy
CPT/HCPCS: 71046

== ENCOUNTER → 2019-12-30 15:22 | Outpatient (CLI) | payer OTHER, SELFPAY ==
[2019-12-30 18:04] LABS: Absolute Lymphocyte Count 1.59 X10^3/uL (0.83-4.51); Absolute Neutrophil Count 3.3 X10^3/uL (2.0-7.7); Basophil# 0.03 X10^3/uL; Basophil% 0.5 % (0-1); Eosinophil# 0.09 X10^3/uL; Eosinophils% 1.6 % (0-5); Hematocrit 37.2 % (37-47); Hemoglobin 12.7 g/dL (12.0-15.0); Lymphocyte # 1.59 X10^3/ul (4.0); Mean Corp Hgb Conc 34.1 g/dL (32-36); Mean Corpuscular Hgb 32.3 pg (27.0-32.0); Mean Corpuscular Volume 94.7 fL (81-99); Mean Platelet Vol. 9.9 fl (6.2-12.0); Monocyte# 0.45 X10^3/uL; Monocyte% 8.2 % (0-10); NRBC Flagged by Analyzer 0 % (0-5); Neutrophil # 3.31 X10^3/uL (2.7-7.7); Neutrophil % 60.5 % (47-70); Platelet Count 263 K/mm3 (150-450); RBC Distribution Width CV 12.2 % (11.6-14.6); RBC Distribution Width SD 42.1 fl (35.1-43.9); Red Blood Count 3.93 M/mm3 (4.2-5.4); White Blood Count 5.5 K/mm3 (4.4-11.0)
[2019-12-30 18:20] LABS: AST(SGOT) 14 U/L (15-37); Alanine Aminotransfer ALT/SGPT 23 U/L (13-56); Albumin, Serum 3.5 g/dL (3.2-5.0); Alkaline Phosphatase 44 U/L (45-117); Anion Gap 6 (5-15); BUN 20 mg/dL (7-18); BUN/Creat Ratio 20.2 RATIO (10-20); Calcium,Total 8.5 mg/dL (8.5-10.1); Chloride 105 mmol/L (98-107); Creatinine, Serum 0.99 mg/dL (0.55-1.02); EST Glomerular Filtration Rate 64 mL/min (>60); Est Glom Filt Rate - Afr Amer 77 mL/min (>60); Globulin 3.4 g/dL (2.2-4.2); Glucose 101 mg/dL (74-106); Potassium 3.6 mmol/L (3.5-5.1); Protein, Total 6.9 g/dL (6.4-8.2); Sodium Level 140 mmol/L (136-145)
== END ==
PROVIDERS: PCP Family Medicine; Referring Provider Internal Medicine Rheumatology; Visit Provider Internal Medicine Rheumatology
DX: M06.09 Rheumatoid arthritis without rheumatoid factor, multiple sites (principal); Z79.899 Other long term (current) drug therapy; M35.00 Sjogren syndrome, unspecified; R51 Headache; G47.00 Insomnia, unspecified
CPT/HCPCS: 36415; 80053; 85025

== ENCOUNTER → 2020-03-19 15:08 | Outpatient (CLI) | payer OTHER, SELFPAY ==
[2020-03-19 17:53] LABS: Absolute Lymphocyte Count 1.48 X10^3/uL (0.83-4.51); Absolute Neutrophil Count 3.2 X10^3/uL (2.0-7.7); Basophil# 0.03 X10^3/uL; Basophil% 0.6 % (0-1); Eosinophil# 0.09 X10^3/uL; Eosinophils% 1.7 % (0-5); Lymphocyte # 1.48 X10^3/ul (4.0); Lymphocyte % 28.6 % (19-41); Mean Corp Hgb Conc 33.3 g/dL (32-36); Mean Corpuscular Hgb 31.3 pg (27.0-32.0); Mean Platelet Vol. 9.7 fl (6.2-12.0); Monocyte# 0.38 X10^3/uL; Monocyte% 7.3 % (0-10); NRBC Flagged by Analyzer 0 % (0-5); Neutrophil # 3.19 X10^3/uL (2.7-7.7); Neutrophil % 61.6 % (47-70); Platelet Count 239 K/mm3 (150-450); RBC Distribution Width CV 11.9 % (11.6-14.6); Red Blood Count 4.15 M/mm3 (4.2-5.4); White Blood Count 5.2 K/mm3 (4.4-11.0)
[2020-03-19 18:08] LABS: ALB/GLOB Ratio 1.1 RATIO (0.9-2.4); AST(SGOT) 8 U/L (15-37); Alanine Aminotransfer ALT/SGPT 23 U/L (13-56); Albumin, Serum 3.8 g/dL (3.2-5.0); Alkaline Phosphatase 53 U/L (45-117); Anion Gap 4 (5-15); BUN 15 mg/dL (7-18); BUN/Creat Ratio 19.1 RATIO (10-20); Calcium,Total 8.7 mg/dL (8.5-10.1); Chloride 108 mmol/L (98-107); Creatinine, Serum 0.79 mg/dL (0.55-1.02); EST Glomerular Filtration Rate 83 mL/min (>60); Est Glom Filt Rate - Afr Amer 100 mL/min (>60); Globulin 3.6 g/dL (2.2-4.2); Glucose 86 mg/dL (74-106); Potassium 3.5 mmol/L (3.5-5.1); Protein, Total 7.4 g/dL (6.4-8.2); Sodium Level 141 mmol/L (136-145)
== END ==
PROVIDERS: PCP Family Medicine; Referring Provider Internal Medicine Rheumatology; Visit Provider Internal Medicine Rheumatology
DX: M06.09 Rheumatoid arthritis without rheumatoid factor, multiple sites (principal); Z79.899 Other long term (current) drug therapy; M35.00 Sjogren syndrome, unspecified; R51.9 Headache, unspecified; G47.00 Insomnia, unspecified
CPT/HCPCS: 36415; 80053; 85025

== ENCOUNTER → 2020-04-02 16:01 | Outpatient (CLI) | payer OTHER, SELFPAY ==
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
== END ==
PROVIDERS: PCP Family Medicine; Referring Provider Internal Medicine Rheumatology; Visit Provider Internal Medicine Rheumatology
DX: M06.09 Rheumatoid arthritis without rheumatoid factor, multiple sites (principal); Z79.899 Other long term (current) drug therapy; M35.00 Sjogren syndrome, unspecified; R51.9 Headache, unspecified; G47.00 Insomnia, unspecified
CPT/HCPCS: 72050

== ENCOUNTER 2020-07-13 15:53 | Emergency (ER) | payer OTHER, SELFPAY ==
[2020-07-13 15:54] VITALS: BP 141/86; PULSE 83; RESP 16; TEMP 35.9; O2SAT 98; BMI 31.0
--- NOTE | 2020-07-13 16:25 | ED.VIS.GEN ---
History of Present Illness Chief Complaint: Lower Extremity Injury Informant: Patient Onset: Weeks - 1 Narrative: Patient sent in from [facility] for evaluation of concerning cyanosis of toes 3 and 4 on the right side. Patient reports over the past week has been noting similar findings at night after work. It would go away in the morning. Denies any pain with the symptoms. Denies any tobacco history. Denies any exertional pain in the legs. 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 She went to the clinic who evaluated saw the cyanosis and sent her to the ED here. Currently symptoms have resolved. Prior similar symptoms: No Past Medical History - Allergies and Home Meds Allergies/Adverse Reactions: Allergies No Known Allergies Allergy (Verified 07/13/20 15:56) Primary Care Physician: Rudy Chang MD [Primary Care Provider] - Past Medical History: None Smoking Status: Never smoker Review of Systems General: Denies: Chills, Fever, Sweats Eyes: Denies: Visual changes - bilaterally, Diplopia ENT: Denies: Rhinorrhea, Sore throat Cardiovascular: Denies: Chest pain, Palpitations Respiratory: Denies: Dyspnea, Cough, Dyspnea on exertion Gastrointestinal: Denies: Abdominal pain, Nausea, Vomiting, Diarrhea, Melena, Hematochezia Genitourinary: Denies: Dysuria, Hematuria, Frequency Musculoskeletal: Denies: Back pain, Extremity Pain Skin: Reports: - - Blue toes.. Denies: Rash, Wounds Neurological: Denies: Headache, Weakness, Numbness Physical Exam Vital Signs/Narrative: Vital Signs Temp Pulse Resp BP Pulse Ox 07/13/20 15:54 96.6 F L 83 16 141/86 H 98 Inital Vital Signs reviewed: Yes General: Well nourished, Well developed, No Acute Distress Head: Normocephalic, Atraumatic Eyes: Perrl, EOMI ENT: Moist mucous membranes, No rhinorrhea Neck: Supple, Nontender Cardiovascular: Regular rate, Regular rhythm, No murmurs Respiratory: No distress, CTA bilaterally, Chest nontender Abdomen: Soft, Nontender, Nondistended, Normal bowel sounds Back: Nontender, Normal Inspection Extremities: Nontender, No edema, - - Strong palpable 2+ pulses PT and DP. There is no current cyanosis good capillary refill. Skin: Normal color, No rash Neurological: Alert, Oriented x3, Cranial nerves II-XII grossly intact, Normal Strength, Normal Sensation Psychological: Normal affect, Normal Mood Diagnostic/Tx/Re-eval - Medical Decision Making Patient vital signs stable. No current cyanosis she has strong pulses and equal bilaterally. She has no tobacco history. Denies any claudication symptoms. Heart rate is normal and regular. Discussed with patient currently no emergent condition for treatment or testing. Discussed she will need likely arterial studies as an outpatient. Discussed this can be ordered by her PCP. She is also given vascular surgery for follow-up if needed. Discussed taking photos if it reoccurs to assist with evaluation. Strict return precautions discussed. Patient is being discharged under pandemic conditions under declared global, national and state disaster activation, with limited medical resources. Patient and community understands this. Results discussed in layman's terms to the patient satisfaction. All questions answered in layman's terms. Patient understands importance of follow-up care as directed. Patient has been instructed to return to the ED immediately if new symptoms, problems, or questions occur. We mutually agree with the plan of disposition. The patient understand that they may call or return with any questions or concerns at any time. ED Disposition - Plan for ED Patient: Disposition: Home or Assisted Living Diagnosis: Transient cyanosis of right toes Referrals: Rudy Chang MD [Primary Care Provider] - 3-5 Days Surya Aponte MD [STAFF PHYSICIAN] - 1 Week Additional Instructions: 2+ PT and DP pulses bilaterally. No current cyanosis. Will likely need arterial studies as an outpatient. Follow-up with your doctor or with vascular surgery for further testing as outpatient. return if worsening symptoms
== END 2020-07-13 16:50 | disposition home or self-care (01) ==
LOC: ED 16:39
PROVIDERS: Emergency Provider Emergency Medicine; PCP Family Medicine
DX: R23.0 Cyanosis (principal)
CPT/HCPCS: 99282

== ENCOUNTER 2020-08-01 15:30 | Outpatient (RCR) | payer OTHER, SELFPAY ==
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
--- NOTE | 2020-07-02 16:11 | HP.PTREVAL ---
Dr. Rudy Chang MD, It has been my pleasure to treat SHANE CHURCH over the last 6 visits for CERVICAL PAIN AND FIBROMYALGIA. Please see the progress note below for an update on the physical therapy plan of care! Subjective: PATIENT REPORTS ALL THE PAIN NEAR HER SHOULDER BLADES IS GONE. PATIENT REPORTS SHE FEELS SHE IS GETTING MORE FLEXABLE WITH THE EX'S BUT THE PAIN IN HER LEFT NECK/SHLD AREA IS STILL CONSTANT BUT NOT BAD IT WAS. HAVING SOME TINGLING IN L HAND INTERMITTENTLY. PATIENT REPORTS SHE WOULD LIKE TO TRY THE US AGAIN TO SEE IF IT HELPS THE BURNING PAIN ON THE LEFT SIDE OF HER NECK AREA. PATIENT IS EXCITED TO REPORT BEING ABLE TO HOLD HER GRANDBABIES WITHOUT INCREASED PAIN NOW. WANTS TO GET BACK TO EX AT [employer]. Objective/Function: PATIENT REPORTED FEELING MUCH BETTER POST US AND TOLERATED EX WELL. PATIENT IS MAKING GOOD PROGRESS TOWARD ALL PT GOALS AND IS A GOOD CANDIDATE TO CONTINUE PT BASED ON PROGRESS MADE AND ROOM FOR FURTHER IMPROVEMENT. PATIENT IS AGREEABLE. Plan Plan: CONT PT 2X'S A WK. FOCUS ON HELPING PATIENT TRANSITION TO INDEP GYM PROGRAM SLOWLY. CERVICAL US, POSTURE CORRECTION/STRENGTHENING, INSTRUCTION IN APPROPRIATE BODY MECHANICS AND ACTIVITY MODIFICATIONS. ANGEL UE ROM, STRETCHING AND STRENGTHENING. HEP INSTRUCTION. Goals Goal 1:: DECREASE C/O NECK, UPPER BACK PAIN AND GENERALIZED PAIN Goal Time Frame: 4-6 Weeks Goal Progress: Progressing Goal 2:: IMPROVE LIFTING, READING, SLEEP, WORK, DRIVING AND RECREATIONAL FUNCTION. Goal Time Frame: 4-6 Weeks Goal Progress: Progressing Goal 3:: INSTRUCT IN PROPHYLAXIS Goal Time Frame: 4-6 Weeks Goal Progress: Progressing Anticipated Interventions Patient/Client Instruction: Educate patient on: Condition, Plan of Care, Risk Factors, Benefits of Fitness Program For the Purpose of:: To improve self management Therapeutic Exercise to Include: Strength training, Body mechanics, Postural training, Flexibilty training, Neuromotor development, Scapular Strength/Stabilization For the Purpose of:: To decrease pain, To increase ROM, To improve muscle performance and motor function, To increase tolerance to activity/condition/position, To improve ability of physical actions for home/community/work/leisure Cryotherapy (ice pack, ice massage): Yes Thermo therapy (hot pack): Yes Ultrasound (thermal/non thermal): Yes For the Purpose of:: To decrease pain, To improve nutrient delivery to tissue Please do not hesitate to contact me at [phone] by phone or if you have questions or concerns regarding this new plan of care! Sincerely, Dodie Caputo, PT, Cert MDT
== END 2020-08-01 19:00 | disposition home or self-care (01) ==
LOC: PT 15:30
PROVIDERS: PCP Family Medicine; Referring Provider Family Medicine; Visit Provider Family Medicine
DX: M54.2 Cervicalgia (principal); M79.7 Fibromyalgia
CPT/HCPCS: 97035; 97110; 97112; 97162; 97530

== ENCOUNTER 2024-05-11 07:52 | Outpatient (CLI) | payer SELFPAY ==
--- NOTE | 2024-05-11 07:53 | CT_ITS ---
STUDY: CT CHEST WITHOUT CONTRAST REASON FOR EXAM: Female, 54 years old. CHEST PAIN RADIATION DOSAGE (If Supplied By Facility): CTDIvol = ( 12.19 ) mGy, DLP = ( 219.42 ) mGycm TECHNIQUE: Transaxial imaging was performed without the administration of intravenous contrast material. Cardiac over read examination. Individualized dose optimization techniques were used for this CT. COMPARISON: No relevant priors. FINDINGS: CHEST The lungs are normal. There is no demonstrated pleural abnormality. There are calcifications of the coronary arteries. Normal mediastinum. Normal hilar regions. Normal unenhanced pulmonary arteries. Normal aorta arch and descending thoracic aorta. Normal osseous structures. Small hiatal hernia. CT/Limited Chest CT Cardiac Only IMPRESSION: Coronary artery calcification. Electronically Signed: Raghavendra Lopez MD at 10:46 EST ,
--- NOTE | 2024-05-11 11:28 | CA.SCORE ---
Calcium Scoring Date of Study:: 05/11/24 Indications Indications: Chest pain Coronary Calcium Scoring: High-resolution Computed Tomographic imaging of the chest was performed on [05/11/24 ], with particular attention paid to the coronary arteries. Images from the examination were analyzed for the presence and extent of coronary artery calcification , using coronary calcium quantification software. The patient tolerated the procedure well and there were no complications. The results of the coronary calcification analysis are provided below. Findings Coronary Artery Left Main (LM): 0 Left Anterior Descending (LAD): 152 Left Circumflex (LCX): 86 Right Coronary Artery (RCA): 0 Total Agatston Score: 238 Percentile Rankin% Calcium Scoring Interpretation: Different methods to categorize the overall amount of coronary plaque. Overall amount CAC SIS Visual of coronary plaque P1 Mild -100 <2 1-2 vessels with mild amount of plaque P2 Moderate 101-300 3-4 1-2 vessels with moderate amount, 3 vessels with mild amount of plaque P3 Severe 301-999 5-7 3 vessels with moderate amount, 1 vessel with severe amount of plaque P4 Extensive >1000 >8 2-3 vessels with severe amount of plaque Calcium Score: Moderate: 1-2 vessels w/moderate amt, 3 vessels w/mild amt of plaque Conclusion: One to two vessel atherosclerotic plaquing noted in LAD and LCx
== END 2024-05-11 23:59 | disposition home or self-care (01) ==
PROVIDERS: PCP Student in an Organized Health Care Education/Training Program; Referring Provider Student in an Organized Health Care Education/Training Program; Visit Provider Student in an Organized Health Care Education/Training Program
DX: R07.9 Chest pain, unspecified (principal); R94.31 Abnormal electrocardiogram [ECG] [EKG]; I25.10 Atherosclerotic heart disease of native coronary artery without angina pectoris
CPT/HCPCS: 75571; 76380

== ENCOUNTER → 2025-01-26 | Outpatient (CLI) | payer BC, SELFPAY ==
[2025-01-26 12:52] VITALS: BP 136/85; PULSE 71; RESP 18; TEMP 37; O2SAT 96; BMI 30.9
[2025-01-26] MEDS: 0.9% Saline Lock 10 ML Syringe IV (13:00)
[2025-01-26 13:10] VITALS: BP 129/77; PULSE 85; RESP 18; O2SAT 96
[2025-01-26 13:11] VITALS: BP 129/77; PULSE 85
[2025-01-26] MEDS: Nitroglycerin SL (ED/IMG/CATH) 0.4 MG TABLET SL (13:11)
== END | disposition home or self-care (01) ==
LOC: CT 12:31
PROVIDERS: PCP Student in an Organized Health Care Education/Training Program; Referring Provider Nurse Practitioner Family; Visit Provider Nurse Practitioner Family
DX: I25.10 Atherosclerotic heart disease of native coronary artery without angina pectoris (principal); R07.9 Chest pain, unspecified
CPT/HCPCS: 75574; 76380; Q9967